=== PATIENT | female | born 1925 | race Caucasian/White ===

== ENCOUNTER 2017-02-12 16:13 | Emergency (ER) | payer OTHER ==
[~2017-02-12] VITALS: Ht 167.6 cm; Wt 86.8 kg
[~2017-02-12 16:13] MED LIST: ACETAMINOPHEN500 MG PO; ALPRAZOLAM0.25 M2 PO; ARICEPT5 MG PO; ASPIRIN81 M1 PO; AVELOX400 MG PO; BENZONATATE200 MG PO; BISACODYL5 MG PO; CALCIUM600 M1 PO; CALCIUM600 MG PO; CITALOPRAM HBR20 MG PO; COUMADIN1 MG PO; COUMADIN2.5 MG PO; CYANOCOBALAM1000 MCG PO; Celexa PO; DIOVAN HCT 11 TABLET PO; DOCUSATE SODIU100 MG PO; DULCOLAX5 MG PO; ENDOCET 5-3251 EACH PO; FOSAMAX70 MG PO; LEXAPRO10 MG PO; LIDOCAINE700 MG TD; NORVASC2.5 MG PO; PERCOCET 5/31 TABLET PO; PREDNISONE20 MG PO; ROBITUSSIN100 MG/5 M PO; SEROQUEL12.5 MG PO; TRILIPIX135 MG PO; TYLENOL WITH C1 EACH PO; VITAMIN B12 PO; VITAMIN B12-FO1 EACH PO; VITAMIN D-3 401 EACH PO; VITAMIN D400 INTUNI PO; XANAX1 MG PO
[2017-02-12 16:42] LABS: EOSINOPHIL COUNT 0.1 K/uL (0-0.3); HEMATOCRIT 36.8 % (36.0-46.0); IMMATURE GRANULOCYTE (%) 0.4 % (0.0-0.7); INSTRUMENT ABS NEUTROPHIL CT 7.4 K/uL; LYMPHOCYTE COUNT 1.6 K/uL (1.0-2.8); MCH 29.9 PG (29.0-34.0); MCHC 32.3 G/DL (30.0-36.0); MCV 92.5 FL (83-99); MEAN PLAT.VOLUME 9.6 uM^3 (9.5-12.4); MONOCYTE (%) 9.5 % (3-12); NEUTROPHIL (%) 73.3 % (45-76); NEUTROPHIL COUNT 7.4 K/uL (1.8-6.4); PLATELET COUNT 169 K/uL (156-360); RBC DIS.WIDTH-SD 44.4 % (39-53); RED BLOOD COUNT 3.98 M/uL (3.80-5.20); WHITE BLOOD COUNT 10.1 K/uL (4.1-10.2)
[2017-02-12 16:48] LABS: INTER. NORMALIZED RATIO 1.2; PROTHROMBIN TIME 13.2 SEC (10.2-12.9)
[2017-02-12 16:50] LABS: PTT 28.7 SEC (25-37)
[2017-02-12 16:53] LABS: CHLORIDE 103 mEq/L (99-109); SODIUM 138 mEq/L (136-147)
[2017-02-12 16:56] LABS: GLUCOSE 174 mg/dL (70-99)
[2017-02-12 16:57] LABS: ANION GAP 10 MEQ/L (2-14); TOTAL BILIRUBIN 0.4 mg/dL (0.0-1.0)
[2017-02-12 16:59] LABS: ALKALINE PHOSPHATASE 66 IU/L (3-129); GFR ESTIMATE (CALCULATED) 45 mL/min/
[2017-02-12 17:00] LABS: UREA NITROGEN (BUN) 19 mg/dL (9-23)
[2017-02-12 17:01] LABS: DIRECT BILIRUBIN 0.2 mg/dL (0.0-0.3)
[2017-02-12 17:03] LABS: LIPASE 193 U/L (1.0-51.0); TROP-I INTERPRETATION NEGATIVE; TROPONIN-I < 0.01 ng/mL (0.0-0.30)
[2017-02-12 19:35] VITALS: BP 150/61
== END 2017-02-12 19:42 | disposition home or self-care (01) ==
LOC: EME 16:13
PROVIDERS: Emergency Medicine
DX: J44.1 Chronic obstructive pulmonary disease with (acute) exacerbation (principal); F03.90 Unspecified dementia, unspecified severity, without behavioral disturbance, psychotic disturbance, mood disturbance, and anxiety; Z79.01 Long term (current) use of anticoagulants; Z90.710 Acquired absence of both cervix and uterus; Z96.642 Presence of left artificial hip joint
CPT/HCPCS: 71010; 80048; 80076; 83605; 83690; 83880; 84484; 85025; 85610; 85730; 94640; 99281; 99285; J2930

== ENCOUNTER 2017-02-16 11:26 | Inpatient (IN) | payer OTHER ==
[~2017-02-16] VITALS: Ht 167.6 cm; Wt 78.2 kg
[2017-02-16 13:50] LABS: EOSINOPHIL COUNT 0.4 K/uL (0-0.3); HEMATOCRIT 36.6 % (36.0-46.0); IMMATURE GRANULOCYTE (%) 0.8 % (0.0-0.7); IMMATURE GRANULOCYTE COUNT 0.1 K/uL; INSTRUMENT ABS NEUTROPHIL CT 9.4 K/uL; LYMPHOCYTE COUNT 3.7 K/uL (1.0-2.8); MCH 29.5 PG (29.0-34.0); MCV 92.4 FL (83-99); MONOCYTE (%) 6.7 % (3-12); NEUTROPHIL COUNT 9.4 K/uL (1.8-6.4); PLATELET COUNT 197 K/uL (156-360); RBC DIS.WIDTH-CV 13.1 % (11.8-14.6); RBC DIS.WIDTH-SD 44.5 % (39-53); RED BLOOD COUNT 3.96 M/uL (3.80-5.20); WHITE BLOOD COUNT 14.7 K/uL (4.1-10.2)
[2017-02-16 13:59] LABS: CHLORIDE 102 mEq/L (99-109); POTASSIUM 4.1 mEq/L (3.7-5.4); SODIUM 139 mEq/L (136-147)
[2017-02-16 14:00] LABS: GLUCOSE 102 mg/dL (70-99)
[2017-02-16 14:02] LABS: ANION GAP 13 MEQ/L (2-14)
[2017-02-16 14:04] LABS: GFR ESTIMATE (CALCULATED) > 59 mL/min/
[2017-02-16 14:05] LABS: UREA NITROGEN (BUN) 21 mg/dL (9-23)
[2017-02-16] MEDS ORDERED: SEROQUEL12.5 MG PO (14:38)
[2017-02-16] MEDS ORDERED: BUSPAR5 MG PO (14:39)
[2017-02-16] MEDS ORDERED: MIRALAX17 GM PO (14:40)
[2017-02-16] MEDS ORDERED: DUONEB 2.5-0.5 M3 ML AEROSOL (14:41)
[2017-02-16] MEDS ORDERED: BISOPROLOL FUMAR5 MG PO (14:43)
[2017-02-16] MEDS ORDERED: MILK OF MAGN PO (14:44)
[2017-02-16 15:12] LABS: ADD MIUA? YES; BILIRUBIN NEGATIVE; BLOOD SMALL; COLOR YELLOW ((YELLOW)); GLUCOSE (STRIP) NEGATIVE; KETONES NEGATIVE; LEUKOCYTES TRACE; NITRITE NEGATIVE; PROTEIN (STRIP) 30; SPECIFIC GRAVITY 1.025 (1.000-1.030)
[2017-02-16 15:23] LABS: BACTERIA RARE /HPF; CALCIUM OXALATE CRYSTALS 2+ /HPF; EPITHELIAL CELLS RARE /HPF; HYALINE CASTS 0-5 /LPF; MUCUS TRACE /LPF; WHITE BLOOD CELLS 0-5 /HPF (0-5)
[2017-02-16 17:15] VITALS: BP 121/59
[2017-02-16 18:50] LABS: INFLUENZA A VIRAL ANTIGEN NEGATIVE; INFLUENZA B VIRAL ANTIGEN NEGATIVE
[2017-02-16 19:30] VITALS: BP 123/60
[2017-02-17] VITALS (7 sets, daily range): BP systolic 133–144; BP diastolic 63–68
[2017-02-17 06:19] LABS: POINT-OF-CARE METER ID UU14208750
[2017-02-17 07:06] LABS: EOSINOPHIL (%) 0 % (0-5); HEMATOCRIT 32.5 % (36.0-46.0); IMMATURE GRANULOCYTE COUNT 0.2 K/uL; INSTRUMENT ABS NEUTROPHIL CT 8.3 K/uL; LYMPHOCYTE COUNT 1.2 K/uL (1.0-2.8); MCH 30.6 PG (29.0-34.0); MCHC 32.9 G/DL (30.0-36.0); MCV 92.9 FL (83-99); MONOCYTE (%) 3.4 % (3-12); MONOCYTE COUNT 0.3 K/uL (0-0.8); NEUTROPHIL (%) 82.8 % (45-76); NEUTROPHIL COUNT 8.3 K/uL (1.8-6.4); PLATELET COUNT 199 K/uL (156-360); RBC DIS.WIDTH-CV 13.2 % (11.8-14.6); RBC DIS.WIDTH-SD 44.5 % (39-53)
[2017-02-17 07:38] LABS: ANION GAP 10 MEQ/L (2-14); CHLORIDE 103 MEQ/L (99-109); GFR ESTIMATE (CALCULATED) > 59 mL/min/; POTASSIUM 4.5 MEQ/L (3.7-5.4); SAMPLE HEMOLYSIS CHECK 0; SAMPLE ICTERIC CHECK 0; SAMPLE LIPEMIA CHECK 0; SODIUM 135 MEQ/L (136-147); UREA NITROGEN (BUN) 22 mg/dL (9-23)
[2017-02-17 07:40] LABS: GLUCOSE 250 mg/dL (70-99)
[2017-02-17 08:28] LABS: INTERNAL CONTROL VALID? YES
[2017-02-17 12:11] LABS: POINT-OF-CARE METER ID UU14208750
[2017-02-17 16:45] LABS: POINT-OF-CARE METER ID UU14162508
[2017-02-17 21:51] LABS: POINT-OF-CARE METER ID UU14208750
[2017-02-18 03:55] VITALS: BP 145/60
[2017-02-18 06:43] LABS: POINT-OF-CARE METER ID UU14208750
[2017-02-18 06:47] LABS: MCH 29.7 PG (29.0-34.0); MCHC 32.1 G/DL (30.0-36.0); MCV 92.4 FL (83-99); PLATELET COUNT 256 K/uL (156-360); RBC DIS.WIDTH-CV 13.2 % (11.8-14.6); RBC DIS.WIDTH-SD 45.8 % (39-53); RED BLOOD COUNT 3.57 M/uL (3.80-5.20); WHITE BLOOD COUNT 13.5 K/uL (4.1-10.2)
[2017-02-18 07:14] LABS: ANION GAP 8 MEQ/L (2-14); CHLORIDE 104 MEQ/L (99-109); GFR ESTIMATE (CALCULATED) 55 mL/min/; GLUCOSE 200 mg/dL (70-99); MAGNESIUM 2.1 mg/dl (1.3-2.7); POTASSIUM 4.7 MEQ/L (3.7-5.4); SAMPLE HEMOLYSIS CHECK 0; SAMPLE ICTERIC CHECK 0; SAMPLE LIPEMIA CHECK 0; SODIUM 138 MEQ/L (136-147); UREA NITROGEN (BUN) 28 mg/dL (9-23)
[2017-02-18 07:25] LABS: ABS NEUTROPHIL COUNT 12.9; ANISOCYTOSIS 1+; BAND NEUTROPHILS 2.6 % (0-8.0); EOSINOPHIL ABS CT 0; INSTRUMENT ABS NEUTROPHIL CT 10.9 K/uL; LYMPHOCYTES 0.9 % (15.0-45.0); METAMYELOCYTES 2.6 %; PLAT.SUFFICIENCY ADEQUATE; POLYCHROMASIA 1+
[2017-02-18 08:20] VITALS: BP 168/72
[2017-02-18 11:48] LABS: POINT-OF-CARE METER ID UU14162508
[2017-02-18 12:57] VITALS: BP 141/64
[2017-02-18 16:16] LABS: POINT-OF-CARE METER ID UU14162508
[2017-02-18 17:38] VITALS: BP 141/60
[2017-02-18 21:33] LABS: POINT-OF-CARE METER ID UU14208750
[2017-02-18 23:21] VITALS: BP 139/65
[2017-02-19 06:31] LABS: HEMATOCRIT 33.1 % (36.0-46.0); MCH 29.9 PG (29.0-34.0); MCHC 32.3 G/DL (30.0-36.0); MCV 92.5 FL (83-99); MEAN PLAT.VOLUME 9.9 uM^3 (9.5-12.4); PLATELET COUNT 259 K/uL (156-360); RBC DIS.WIDTH-CV 13.2 % (11.8-14.6); RBC DIS.WIDTH-SD 45.2 % (39-53); RED BLOOD COUNT 3.58 M/uL (3.80-5.20); WHITE BLOOD COUNT 13.1 K/uL (4.1-10.2)
[2017-02-19 06:35] LABS: POINT-OF-CARE METER ID UU14208750
[2017-02-19 06:49] LABS: ANION GAP 10 MEQ/L (2-14); CHLORIDE 102 MEQ/L (99-109); GFR ESTIMATE (CALCULATED) 55 mL/min/; GLUCOSE 231 mg/dL (70-99); MAGNESIUM 2.2 mg/dl (1.3-2.7); POTASSIUM 4.6 MEQ/L (3.7-5.4); SAMPLE HEMOLYSIS CHECK 0; SAMPLE ICTERIC CHECK 0; SAMPLE LIPEMIA CHECK 0; SODIUM 137 MEQ/L (136-147); UREA NITROGEN (BUN) 31 mg/dL (9-23)
[2017-02-19 07:30] VITALS: BP 184/104
[2017-02-19 07:31] LABS: ABS NEUTROPHIL COUNT 10.7; ATYPICAL LYMPHOCYTE 1.7 %; BAND NEUTROPHILS 4.3 % (0-8.0); EOSINOPHIL ABS CT 0; LYMPHOCYTES 9.6 % (15.0-45.0); METAMYELOCYTES 2.6 %; PLAT.SUFFICIENCY ADEQUATE; SEG.NEUTROPHILS 77.4 % (46.0-76.0)
[2017-02-19 11:30] VITALS: BP 181/77
[2017-02-19 12:00] LABS: POINT-OF-CARE METER ID UU14208750
[2017-02-19 16:05] VITALS: BP 190/86
[2017-02-19 16:33] LABS: POINT-OF-CARE METER ID UU14208750
[2017-02-19 21:56] LABS: POINT-OF-CARE METER ID UU14208750
[2017-02-19 22:47] VITALS: BP 177/72
[2017-02-20 06:54] LABS: HEMATOCRIT 33.5 % (36.0-46.0); MCH 31.3 PG (29.0-34.0); MEAN PLAT.VOLUME 10.1 uM^3 (9.5-12.4); NRBC (%) 0.3 /100 WBC (0-0); PLATELET COUNT 267 K/uL (156-360); RBC DIS.WIDTH-CV 13.3 % (11.8-14.6); RBC DIS.WIDTH-SD 45.1 % (39-53); RED BLOOD COUNT 3.64 M/uL (3.80-5.20)
[2017-02-20 07:05] LABS: POINT-OF-CARE METER ID UU14208750
[2017-02-20 07:07] LABS: ANION GAP 10 MEQ/L (2-14); CHLORIDE 102 MEQ/L (99-109); GFR ESTIMATE (CALCULATED) 55 mL/min/; GLUCOSE 185 mg/dL (70-99); POTASSIUM 4.5 MEQ/L (3.7-5.4); SAMPLE HEMOLYSIS CHECK 0; SAMPLE ICTERIC CHECK 0; SAMPLE LIPEMIA CHECK 0; SODIUM 137 MEQ/L (136-147); UREA NITROGEN (BUN) 31 mg/dL (9-23)
[2017-02-20 07:11] LABS: Estimated Average Glucose 157 mg/dL (70-123); HEMOGLOBIN A1c (GLYCOHEMOGLOB) 7.1 % HGB (Below 5.7)
[2017-02-20 07:23] LABS: ABS NEUTROPHIL COUNT 11.1; BAND NEUTROPHILS 0.9 % (0-8.0); EOSINOPHIL ABS CT 0; INSTRUMENT ABS NEUTROPHIL CT 10.4 K/uL; LYMPHOCYTES 15.7 % (15.0-45.0); METAMYELOCYTES 2.6 %; MYELOCYTES 2.6 %; PLAT.SUFFICIENCY ADEQUATE; SMUDGE CELLS 2.6
[2017-02-20 07:30] VITALS: BP 162/77
[2017-02-20 11:59] LABS: POINT-OF-CARE METER ID UU14162508
[2017-02-20 15:25] VITALS: BP 145/69
[2017-02-20 16:20] LABS: POINT-OF-CARE METER ID UU14208750
[2017-02-20 21:57] LABS: POINT-OF-CARE METER ID UU14162508
[2017-02-21 00:20] VITALS: BP 182/81
[2017-02-21 04:22] VITALS: BP 176/99
[2017-02-21 06:15] LABS: HEMATOCRIT 37.3 % (36.0-46.0); MCH 30.8 PG (29.0-34.0); MCHC 33.8 G/DL (30.0-36.0); MCV 91.2 FL (83-99); MEAN PLAT.VOLUME 9.5 uM^3 (9.5-12.4); NRBC (%) 0.5 /100 WBC (0-0); PLATELET COUNT 293 K/uL (156-360); RBC DIS.WIDTH-CV 13.4 % (11.8-14.6); RBC DIS.WIDTH-SD 44.5 % (39-53); RED BLOOD COUNT 4.09 M/uL (3.80-5.20); WHITE BLOOD COUNT 17.3 K/uL (4.1-10.2)
[2017-02-21 06:29] LABS: POINT-OF-CARE METER ID UU14208750
[2017-02-21 06:41] LABS: ANION GAP 11 MEQ/L (2-14); CHLORIDE 104 MEQ/L (99-109); GFR ESTIMATE (CALCULATED) 50 mL/min/; GLUCOSE 118 mg/dL (70-99); POTASSIUM 4.2 MEQ/L (3.7-5.4); SAMPLE HEMOLYSIS CHECK 0; SAMPLE ICTERIC CHECK 0; SAMPLE LIPEMIA CHECK 0; SODIUM 139 MEQ/L (136-147); UREA NITROGEN (BUN) 30 mg/dL (9-23)
[2017-02-21 07:56] VITALS: BP 182/77
[2017-02-21 07:58] LABS: ABS NEUTROPHIL COUNT 11.4; EOSINOPHIL ABS CT 0; INSTRUMENT ABS NEUTROPHIL CT 10.5 K/uL; PLAT.SUFFICIENCY ADEQUATE
[2017-02-21 11:52] LABS: POINT-OF-CARE METER ID UU14208750
[2017-02-21 15:59] VITALS: BP 177/75
[2017-02-21 16:46] LABS: POINT-OF-CARE METER ID UU14208750; POINT-OF-CARE USER ID PUTDRM
[2017-02-21 21:58] LABS: POINT-OF-CARE METER ID UU14162508
[2017-02-21 23:51] VITALS: BP 168/73
[2017-02-21 23:54] VITALS: BP 168/73
[2017-02-22 06:45] VITALS: BP 145/65
[2017-02-22 07:05] LABS: POINT-OF-CARE METER ID UU14162508
[2017-02-22 08:07] LABS: HEMATOCRIT 38.4 % (36.0-46.0); MCH 29.3 PG (29.0-34.0); MCV 91.4 FL (83-99); MEAN PLAT.VOLUME 9.4 uM^3 (9.5-12.4); NRBC (%) 0.1 /100 WBC (0-0); PLATELET COUNT 300 K/uL (156-360); RBC DIS.WIDTH-CV 13.5 % (11.8-14.6); RBC DIS.WIDTH-SD 45.3 % (39-53); WHITE BLOOD COUNT 14.2 K/uL (4.1-10.2)
[2017-02-22 10:55] VITALS: BP 127/61
[2017-02-22] MEDS ORDERED: PREDNISONE10 MG PO (11:27)
[2017-02-22] MEDS ORDERED: AMLODIPINE BESYL5 MG PO (11:27)
[2017-02-22] MEDS ORDERED: SPIRIVA RESPIMAT4 GM IH (11:27)
[2017-02-22] MEDS ORDERED: AMOX TR-K CLV1 EAC4 PO (11:27)
[2017-02-22] MEDS ORDERED: APRESOLINE25 MG PO (11:27)
[2017-02-22] MEDS ORDERED: ADVAIR HFA120 INHALA IH (11:27)
[2017-02-22] MEDS ORDERED: MUCINEX600 MG PO (11:27)
[2017-02-22 12:11] LABS: POINT-OF-CARE METER ID UU14162508
[2017-02-22 13:00] VITALS: BP 122/59
== END 2017-02-22 15:34 | DRG 190 ==
LOC: EME 11:26 → 2EAST 14:13 → EDOF 14:13 → ENRESERV 14:27 → 2EAST 17:00
PROVIDERS: Emergency Medicine; Internal Medicine
DX: J44.0 Chronic obstructive pulmonary disease with (acute) lower respiratory infection (principal); J44.1 Chronic obstructive pulmonary disease with (acute) exacerbation; R31.9 Hematuria, unspecified; F41.9 Anxiety disorder, unspecified; J15.9 Unspecified bacterial pneumonia; E78.5 Hyperlipidemia, unspecified; E11.9 Type 2 diabetes mellitus without complications; J98.11 Atelectasis; Z77.22 Contact with and (suspected) exposure to environmental tobacco smoke (acute) (chronic); I10 Essential (primary) hypertension; M19.90 Unspecified osteoarthritis, unspecified site; J98.01 Acute bronchospasm; T38.0X5A Adverse effect of glucocorticoids and synthetic analogues, initial encounter
CPT/HCPCS: 71010; 71020; 71250; 80048; 81003; 82948; 83036; 83735; 84100; 85025; 85027; 87040; 87070; 87205; 87449; 87502; 93005; 94640; 94640 76; 94760; 94799; 97530 GP; 99202; 99281; 99285; J0456; J0696; J1650; J1815; J2920; J2930; J7030; J7050; J7512

== ENCOUNTER 2017-03-12 19:15 | Inpatient (IN) | payer OTHER ==
[~2017-03-12] VITALS: Ht 167.6 cm; Wt 93.6 kg
[~2017-03-12 19:15] MED LIST changes: +ADVAIR HFA120 INHALA IH; +AMLODIPINE BESYL5 MG PO; +AMOX TR-K CLV1 EAC4 PO; +APRESOLINE25 MG PO; +BISOPROLOL FUMAR5 MG PO; +BUSPAR5 MG PO; +CALCIUM 600 +1 EA11 PO; -CALCIUM600 M1 PO; +DUONEB 2.5-0.5 M3 ML AEROSOL; +MILK OF MAGN PO; +MIRALAX17 GM PO; +MUCINEX600 MG PO; +PREDNISONE10 MG PO; +SPIRIVA RESPIMAT4 GM IH
[2017-03-12 20:21] LABS: EOSINOPHIL (%) 4.2 % (0-5); EOSINOPHIL COUNT 0.4 K/uL (0-0.3); HEMATOCRIT 36.1 % (36.0-46.0); IMMATURE GRANULOCYTE (%) 0.6 % (0.0-0.7); IMMATURE GRANULOCYTE COUNT 0.1 K/uL; INSTRUMENT ABS NEUTROPHIL CT 7.8 K/uL; LYMPHOCYTE COUNT 0.3 K/uL (1.0-2.8); MCH 29.9 PG (29.0-34.0); MCHC 32.4 G/DL (30.0-36.0); MCV 92.3 FL (83-99); MONOCYTE (%) 4.6 % (3-12); MONOCYTE COUNT 0.4 K/uL (0-0.8); NEUTROPHIL (%) 87.5 % (45-76); NEUTROPHIL COUNT 7.8 K/uL (1.8-6.4); RBC DIS.WIDTH-CV 13.8 % (11.8-14.6); RBC DIS.WIDTH-SD 46.8 % (39-53); RED BLOOD COUNT 3.91 M/uL (3.80-5.20)
[2017-03-12 20:28] LABS: CHLORIDE 103 mEq/L (99-109); POTASSIUM 4.5 mEq/L (3.7-5.4)
[2017-03-12 20:30] LABS: GLUCOSE 178 mg/dL (70-99)
[2017-03-12 20:31] LABS: ANION GAP 11 MEQ/L (2-14)
[2017-03-12 20:34] LABS: ALKALINE PHOSPHATASE 93 IU/L (3-129)
[2017-03-12 20:35] LABS: GFR ESTIMATE (CALCULATED) 38 mL/min/; SODIUM 137 mEq/L (136-147); UREA NITROGEN (BUN) 19 mg/dL (9-23)
[2017-03-12 20:55] LABS: MEAN PLAT.VOLUME 10.4 uM^3 (9.5-12.4); PLAT.SUFFICIENCY DECREASED; PLATELET COUNT 141 K/uL (156-360)
[2017-03-12 22:01] LABS: ADD MIUA? YES; BILIRUBIN NEGATIVE; BLOOD NEGATIVE; COLOR AMBER ((YELLOW)); GLUCOSE (STRIP) NEGATIVE; KETONES NEGATIVE; LEUKOCYTES TRACE; NITRITE NEGATIVE; PROTEIN (STRIP) 30; SPECIFIC GRAVITY 1.023 (1.000-1.030)
[2017-03-12 22:08] LABS: BACTERIA RARE /HPF; EPITHELIAL CELLS 1+ /HPF; MUCUS TRACE /LPF; UCUL ADDED? YES; WHITE BLOOD CELLS 15-20 /HPF (0-5)
[2017-03-13] VITALS (7 sets, daily range): BP systolic 90–132; BP diastolic 55–68
[2017-03-13 04:18] LABS: TROP-I INTERPRETATION NEGATIVE; TROPONIN-I 0.04 ng/mL (0.0-0.30)
[2017-03-13] MEDS ORDERED: INCRUSE ELLI62.5 MCG IH (09:45)
[2017-03-13] MEDS ORDERED: LOTRIMIN AF24 GM TP (09:50)
[2017-03-13] MEDS ORDERED: HYDRALAZINE HCL25 MG PO (09:56)
[2017-03-13] MEDS ORDERED: NOVOLOG 10100 UNITS/ SC (09:58)
[2017-03-13] MEDS ORDERED: ACETAMINOPHEN325 M1 PO (09:59)
[2017-03-13] MEDS ORDERED: DULCOLAX10 MG PR (10:01)
[2017-03-13] MEDS ORDERED: MIRALAX17 GM PO (10:03)
[2017-03-13] MEDS ORDERED: ONDANSETRON HCL4 MG PO (10:04)
[2017-03-13 14:42] LABS: ALKALINE PHOSPHATASE 88 IU/L (3-129); ANION GAP 9 MEQ/L (2-14); CHLORIDE 106 MEQ/L (99-109); GFR ESTIMATE (CALCULATED) > 59 mL/min/; GLUCOSE 125 mg/dL (70-99); LIPASE 11 U/L (1.0-51.0); POTASSIUM 3.8 MEQ/L (3.7-5.4); SAMPLE HEMOLYSIS CHECK 0; SAMPLE ICTERIC CHECK 0; SAMPLE LIPEMIA CHECK 0; SODIUM 140 MEQ/L (136-147); TOTAL BILIRUBIN 0.8 MG/DL (0.0-1.0); UREA NITROGEN (BUN) 17 mg/dL (9-23)
[2017-03-13 19:55] LABS: INFLUENZA A VIRAL ANTIGEN NEGATIVE; INFLUENZA B VIRAL ANTIGEN NEGATIVE
[2017-03-14] VITALS (7 sets, daily range): BP systolic 121–152; BP diastolic 63–69
[2017-03-14 06:23] LABS: HEMATOCRIT 31.4 % (36.0-46.0); MCH 29.3 PG (29.0-34.0); MCHC 31.5 G/DL (30.0-36.0); MCV 92.9 FL (83-99); MEAN PLAT.VOLUME 10.4 uM^3 (9.5-12.4); PLATELET COUNT 168 K/uL (156-360); RBC DIS.WIDTH-CV 13.9 % (11.8-14.6); RBC DIS.WIDTH-SD 47.5 % (39-53); RED BLOOD COUNT 3.38 M/uL (3.80-5.20); WHITE BLOOD COUNT 5.9 K/uL (4.1-10.2)
[2017-03-14 06:43] LABS: ANION GAP 9 MEQ/L (2-14); CHLORIDE 104 MEQ/L (99-109); GFR ESTIMATE (CALCULATED) 50 mL/min/; GLUCOSE 106 mg/dL (70-99); POTASSIUM 4.1 MEQ/L (3.7-5.4); SAMPLE HEMOLYSIS CHECK 0; SAMPLE ICTERIC CHECK 0; SAMPLE LIPEMIA CHECK 0; SODIUM 137 MEQ/L (136-147); UREA NITROGEN (BUN) 16 mg/dL (9-23)
[2017-03-14 15:21] LABS: ALKALINE PHOSPHATASE 99 IU/L (3-129); DIRECT BILIRUBIN 0.4 mg/dL (0.0-0.3); TOTAL BILIRUBIN 0.8 MG/DL (0.0-1.0)
[2017-03-15 04:00] VITALS: BP 123/66
[2017-03-15 08:16] VITALS: BP 131/63
[2017-03-15 10:15] LABS: HEMATOCRIT 32.6 % (36.0-46.0); MCH 30.2 PG (29.0-34.0); MCHC 32.5 G/DL (30.0-36.0); MCV 92.9 FL (83-99); MEAN PLAT.VOLUME 10.9 uM^3 (9.5-12.4); PLATELET COUNT 177 K/uL (156-360); RBC DIS.WIDTH-CV 14.2 % (11.8-14.6); RED BLOOD COUNT 3.51 M/uL (3.80-5.20); WHITE BLOOD COUNT 8.1 K/uL (4.1-10.2)
[2017-03-15 10:40] LABS: ALKALINE PHOSPHATASE 114 IU/L (3-129); DIRECT BILIRUBIN 0.4 mg/dL (0.0-0.3); TOTAL BILIRUBIN 0.8 MG/DL (0.0-1.0)
[2017-03-15 10:41] LABS: EOSINOPHIL (%) 9.8 % (0-5); EOSINOPHIL COUNT 0.8 K/uL (0-0.3); IMMATURE GRANULOCYTE (%) 0.4 % (0.0-0.7); INSTRUMENT ABS NEUTROPHIL CT 4.7 K/uL; LYMPHOCYTE COUNT 2.1 K/uL (1.0-2.8); MONOCYTE (%) 5.8 % (3-12); MONOCYTE COUNT 0.5 K/uL (0-0.8); NEUTROPHIL (%) 57.6 % (45-76); NEUTROPHIL COUNT 4.7 K/uL (1.8-6.4)
[2017-03-15 10:45] LABS: ANION GAP 10 MEQ/L (2-14); CHLORIDE 104 MEQ/L (99-109); GFR ESTIMATE (CALCULATED) > 59 mL/min/; GLUCOSE 115 mg/dL (70-99); POTASSIUM 3.9 MEQ/L (3.7-5.4); SAMPLE HEMOLYSIS CHECK 0; SAMPLE ICTERIC CHECK 0; SAMPLE LIPEMIA CHECK 0; SODIUM 138 MEQ/L (136-147); UREA NITROGEN (BUN) 15 mg/dL (9-23)
[2017-03-15] MEDS ORDERED: AMOXICILLIN500 M1 PO (12:19)
[2017-03-15 12:26] VITALS: BP 135/62
== END 2017-03-15 15:05 | DRG 872 ==
LOC: EME 19:15 → 5SOUTH 03-13 00:30 → EDOF 03-13 00:30 → ENRESERV 03-13 00:36 → 5SOUTH 03-13 01:26
PROVIDERS: Emergency Medicine; Family Medicine; Hospitalist; Internal Medicine
DX: A41.9 Sepsis, unspecified organism (principal); N17.9 Acute kidney failure, unspecified; N39.0 Urinary tract infection, site not specified; J98.11 Atelectasis; E11.9 Type 2 diabetes mellitus without complications; E78.5 Hyperlipidemia, unspecified; I10 Essential (primary) hypertension; F03.90 Unspecified dementia, unspecified severity, without behavioral disturbance, psychotic disturbance, mood disturbance, and anxiety; F41.9 Anxiety disorder, unspecified; Z77.22 Contact with and (suspected) exposure to environmental tobacco smoke (acute) (chronic); J44.9 Chronic obstructive pulmonary disease, unspecified; K76.89 Other specified diseases of liver; R09.02 Hypoxemia; Z87.01 Personal history of pneumonia (recurrent); Z85.41 Personal history of malignant neoplasm of cervix uteri; Z96.642 Presence of left artificial hip joint; Z90.710 Acquired absence of both cervix and uterus
CPT/HCPCS: 71010; 71250; 74230; 76705; 80048; 80053; 80076; 81003; 83605; 83690; 84484; 85025; 85027; 87040; 87086; 87186; 87502; 87801; 92610 GN; 92611 GN; 94640; 94640 76; 94799; 99202; 99281; 99285; J0295; J0696; J1644; J2405; J7030; J7050

== ENCOUNTER 2017-03-19 20:49 | Inpatient (IN) | payer OTHER ==
[~2017-03-19] VITALS: Ht 165.1 cm; Wt 84.4 kg
[~2017-03-19 20:49] MED LIST changes: +ACETAMINOPHEN325 M1 PO; +AMOXICILLIN500 M1 PO; +DULCOLAX10 MG PR; +HYDRALAZINE HCL25 MG PO; +INCRUSE ELLI62.5 MCG IH; +LOTRIMIN AF24 GM TP; +NOVOLOG 10100 UNITS/ SC; +ONDANSETRON HCL4 MG PO
[2017-03-19 21:46] LABS: HEMATOCRIT 30.7 % (36.0-46.0); MCH 30.1 PG (29.0-34.0); MCHC 32.9 G/DL (30.0-36.0); MCV 91.4 FL (83-99); MEAN PLAT.VOLUME 10.2 uM^3 (9.5-12.4); RBC DIS.WIDTH-CV 14.6 % (11.8-14.6); RBC DIS.WIDTH-SD 48.8 % (39-53); RED BLOOD COUNT 3.36 M/uL (3.80-5.20); WHITE BLOOD COUNT 11.4 K/uL (4.1-10.2)
[2017-03-19 21:49] LABS: PLATELET COUNT 303 K/uL (156-360)
[2017-03-19 21:52] LABS: CARBON DIOXIDE (BICARBONATE) 28.5 MEQ/L (20-31)
[2017-03-19 21:55] LABS: CHLORIDE 106 mEq/L (99-109); POTASSIUM 4.1 mEq/L (3.7-5.4); SODIUM 139 mEq/L (136-147)
[2017-03-19 21:58] LABS: GLUCOSE 180 mg/dL (70-99)
[2017-03-19 21:59] LABS: ANION GAP 11 MEQ/L (2-14); TOTAL BILIRUBIN 0.6 mg/dL (0.0-1.0)
[2017-03-19 22:01] LABS: ALKALINE PHOSPHATASE 131 IU/L (3-129); GFR ESTIMATE (CALCULATED) 55 mL/min/
[2017-03-19 22:02] LABS: UREA NITROGEN (BUN) 16 mg/dL (9-23)
[2017-03-19 22:03] LABS: DIRECT BILIRUBIN 0.4 mg/dL (0.0-0.3)
[2017-03-19 22:05] LABS: LIPASE 28 U/L (1.0-51.0)
[2017-03-19 22:07] LABS: TROP-I INTERPRETATION NEGATIVE; TROPONIN-I < 0.01 ng/mL (0.0-0.30)
[2017-03-19] MEDS ORDERED: NORVASC5 MG PO (23:28)
[2017-03-19] MEDS ORDERED: AMOXICILLIN500 MG PO (23:30)
[2017-03-19] MEDS ORDERED: PHILLIPS'400 MG/5 M PO (23:32)
[2017-03-20 02:55] LABS: ADD MIUA? NO; BILIRUBIN NEGATIVE; BLOOD NEGATIVE; COLOR YELLOW ((YELLOW)); GLUCOSE (STRIP) NEGATIVE; KETONES NEGATIVE; LEUKOCYTES NEGATIVE; NITRITE NEGATIVE; PROTEIN (STRIP) NEGATIVE; SPECIFIC GRAVITY 1.019 (1.000-1.030); UCUL ADDED? NO; UROBILINOGEN 0.2 MG/DL (0.2-1.0)
[2017-03-20 04:30] VITALS: BP 120/58
[2017-03-20 05:22] LABS: HEMATOCRIT 30.3 % (36.0-46.0); MCH 30.5 PG (29.0-34.0); MCHC 32.7 G/DL (30.0-36.0); MCV 93.2 FL (83-99); MEAN PLAT.VOLUME 10.3 uM^3 (9.5-12.4); PLATELET COUNT 290 K/uL (156-360); RBC DIS.WIDTH-CV 14.8 % (11.8-14.6); RBC DIS.WIDTH-SD 50.4 % (39-53); RED BLOOD COUNT 3.25 M/uL (3.80-5.20); WHITE BLOOD COUNT 11.2 K/uL (4.1-10.2)
[2017-03-20 05:48] LABS: ALKALINE PHOSPHATASE 112 IU/L (3-129); ANION GAP 8 MEQ/L (2-14); CHLORIDE 108 MEQ/L (99-109); GFR ESTIMATE (CALCULATED) 55 mL/min/; GLUCOSE 158 mg/dL (70-99); POTASSIUM 4.2 MEQ/L (3.7-5.4); SAMPLE HEMOLYSIS CHECK 0; SAMPLE ICTERIC CHECK 0; SAMPLE LIPEMIA CHECK 0; SODIUM 141 MEQ/L (136-147); TOTAL BILIRUBIN 0.7 MG/DL (0.0-1.0); UREA NITROGEN (BUN) 16 mg/dL (9-23)
[2017-03-20 06:21] LABS: METH RESISTANT S AUREUS PCR NEGATIVE (NEGATIVE)
[2017-03-20 06:26] LABS: PROBE CHECK PASS; SPECIMEN PROCESSING CONTROL PASS
[2017-03-20 07:25] VITALS: BP 112/55
[2017-03-20 08:17] LABS: POINT-OF-CARE METER ID UU13113698; POINT-OF-CARE USER ID ENVKC36
[2017-03-20 11:55] VITALS: BP 108/54
[2017-03-20 13:11] LABS: POINT-OF-CARE METER ID UU13113781
[2017-03-20 15:51] VITALS: BP 127/58
[2017-03-20 17:09] LABS: POINT-OF-CARE METER ID UU14174216; POINT-OF-CARE USER ID NUTSLF44
[2017-03-20 19:50] VITALS: BP 125/78
[2017-03-20 21:14] LABS: POINT-OF-CARE METER ID UU13113781
[2017-03-21] VITALS: BP 130/66
[2017-03-21 04:00] VITALS: BP 120/66
[2017-03-21 04:11] LABS: POINT-OF-CARE METER ID UU14174216; POINT-OF-CARE USER ID AHSUCEG
[2017-03-21 06:36] LABS: ANION GAP 9 MEQ/L (2-14); CHLORIDE 109 MEQ/L (99-109); GFR ESTIMATE (CALCULATED) 55 mL/min/; GLUCOSE 132 mg/dL (70-99); POTASSIUM 4.3 MEQ/L (3.7-5.4); SAMPLE HEMOLYSIS CHECK 0; SAMPLE ICTERIC CHECK 0; SAMPLE LIPEMIA CHECK 0; SODIUM 141 MEQ/L (136-147); UREA NITROGEN (BUN) 15 mg/dL (9-23)
[2017-03-21 07:12] VITALS: BP 126/56
[2017-03-21 07:59] LABS: POINT-OF-CARE METER ID UU14314088
[2017-03-21 11:27] VITALS: BP 113/53
[2017-03-21 11:38] LABS: POINT-OF-CARE METER ID UU14314088
[2017-03-21 16:10] VITALS: BP 120/56
[2017-03-21 16:51] LABS: POINT-OF-CARE METER ID UU13113698
[2017-03-21 19:57] VITALS: BP 114/55
[2017-03-21 21:15] LABS: POINT-OF-CARE METER ID UU14314088
[2017-03-22 00:10] VITALS: BP 120/57
[2017-03-22 03:47] VITALS: BP 119/56
[2017-03-22 08:07] VITALS: BP 117/79
[2017-03-22 08:16] LABS: POINT-OF-CARE METER ID UU14174216
[2017-03-22 09:12] LABS: EOSINOPHIL (%) 4.4 % (0-5); EOSINOPHIL COUNT 0.5 K/uL (0-0.3); HEMATOCRIT 29.4 % (36.0-46.0); IMMATURE GRANULOCYTE COUNT 0.1 K/uL; INSTRUMENT ABS NEUTROPHIL CT 8.7 K/uL; MCH 30.1 PG (29.0-34.0); MCHC 32.3 G/DL (30.0-36.0); MEAN PLAT.VOLUME 9.6 uM^3 (9.5-12.4); MONOCYTE (%) 5.2 % (3-12); MONOCYTE COUNT 0.6 K/uL (0-0.8); NEUTROPHIL (%) 80.3 % (45-76); NEUTROPHIL COUNT 8.7 K/uL (1.8-6.4); PLATELET COUNT 324 K/uL (156-360); RBC DIS.WIDTH-CV 15.2 % (11.8-14.6); RBC DIS.WIDTH-SD 52.2 % (39-53); RED BLOOD COUNT 3.16 M/uL (3.80-5.20); WHITE BLOOD COUNT 10.9 K/uL (4.1-10.2)
[2017-03-22 09:35] LABS: ANION GAP 10 MEQ/L (2-14); CHLORIDE 109 MEQ/L (99-109); GFR ESTIMATE (CALCULATED) 50 mL/min/; GLUCOSE 144 mg/dL (70-99); SAMPLE HEMOLYSIS CHECK 0; SAMPLE ICTERIC CHECK 0; SAMPLE LIPEMIA CHECK 0; SODIUM 141 MEQ/L (136-147); UREA NITROGEN (BUN) 17 mg/dL (9-23)
[2017-03-22 11:08] VITALS: BP 120/59
[2017-03-22 12:07] LABS: POINT-OF-CARE METER ID UU13113698
[2017-03-22 15:52] VITALS: BP 113/80
[2017-03-22 16:32] LABS: POINT-OF-CARE METER ID UU14174216
[2017-03-22 20:07] VITALS: BP 134/64
[2017-03-22 21:16] LABS: POINT-OF-CARE METER ID UU13113698
[2017-03-23 00:17] VITALS: BP 115/58
[2017-03-23 04:08] VITALS: BP 102/50
[2017-03-23 07:52] LABS: POINT-OF-CARE METER ID UU13113698
[2017-03-23 08:00] VITALS: BP 128/88
[2017-03-23 11:27] VITALS: BP 131/89
[2017-03-23 11:43] LABS: POINT-OF-CARE METER ID UU13113698
[2017-03-23] MEDS ORDERED: AUGMENTIN875 MG PO (11:49)
== END 2017-03-23 16:20 | DRG 871 ==
LOC: EME 20:49 → EDOF 03-20 01:22 → 4EAST 03-20 01:22 → ENRESERV 03-20 01:30 → CANRESERV 03-20 01:30 → ENRESERV 03-20 01:39 → 4EAST 03-20 04:06 → ENPENDDIS 03-23 → 4EAST 03-23 16:20
PROVIDERS: Emergency Medicine; Internal Medicine
DX: A41.89 Other specified sepsis (principal); J69.0 Pneumonitis due to inhalation of food and vomit; J98.11 Atelectasis; J90 Pleural effusion, not elsewhere classified; J44.9 Chronic obstructive pulmonary disease, unspecified; E11.9 Type 2 diabetes mellitus without complications; E78.5 Hyperlipidemia, unspecified; F03.90 Unspecified dementia, unspecified severity, without behavioral disturbance, psychotic disturbance, mood disturbance, and anxiety; F41.9 Anxiety disorder, unspecified; I10 Essential (primary) hypertension; R13.10 Dysphagia, unspecified; Z85.41 Personal history of malignant neoplasm of cervix uteri; Z96.642 Presence of left artificial hip joint; Z87.440 Personal history of urinary (tract) infections; Z87.01 Personal history of pneumonia (recurrent); Z77.22 Contact with and (suspected) exposure to environmental tobacco smoke (acute) (chronic); Z79.51 Long term (current) use of inhaled steroids; Z79.4 Long term (current) use of insulin
CPT/HCPCS: 71010; 71250; 74230; 80048; 80053; 80076; 81003; 82803; 82948; 83605; 83690; 83880; 84484; 85025; 85027; 87040; 87086; 87641; 92526 GN; 92611 GN; 93005; 94640; 94640 76; 94760; 94799; 99202; 99281; 99285; J1644; J1815; J2543; J7030; J7050